=== PATIENT | female | born 1980 | race Caucasian/White ===

== ENCOUNTER 2021-04-05 11:56 | Emergency (ER) | payer OTHER, SELFPAY ==
[2021-04-05 12:05] VITALS: BP 119/73; PULSE 67; RESP 14; TEMP 36.6; O2SAT 100
--- NOTE | 2021-04-05 12:15 | DI.RAD_ITS ---
Exam(s) XR HAND LT COMPLETE EXAM: XR HAND LT COMPLETE CLINICAL HISTORY: pain after fall. TECHNIQUE: 2D digital imaging was performed. COMPARISON: No exams were available for comparison FINDINGS: BONES: There is an acute oblique fracture through the shaft of the 5th metacarpal. There is dorsal a ngulation of the distal fracture. There is also approximately 5 mm of lateral displacement. No bony destructive lesion is seen. JOINTS: No dislocation present. SOFT TISSUE: Normal. IMPRESSION: Displaced fracture of the shaft of the 5th metacarpal. DATA REPOSITORY: RADIATION DOSE DELIVERED:
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
[2021-04-05 13:57] VITALS: BP 112/68; PULSE 83; RESP 18; TEMP 37.2; O2SAT 100
--- NOTE | 2021-04-05 14:20 | DI.VRAD_ITS ---
PROCEDURE INFORMATION: Exam: XR Left Hand Exam date and time: 04/05/2021 12:25 PM Age: 40 years old Clinical indication: Injury or trauma; Blunt trauma (contusions or hematomas); Hand; Left; Patient HX: Pain after fall TECHNIQUE: Imaging protocol: XR Left hand. Views: 3 or more views. COMPARISON: No relevant prior studies available. FINDINGS: Bones/joints: There is an acute oblique fracture through the shaft of the 5th metacarpal bone. The distal fragment is tilted dorsomedially with about 5 mm of lateral displacement. Soft tissues: Normal. IMPRESSION: Displaced fracture of the shaft of the 5th metacarpal bone. Dictated and Authenticated by: Ishaan Cummings MD. Ordering:KURT Couch MD
== END 2021-04-05 14:03 | disposition home or self-care (01) ==
PROVIDERS: Emergency Provider Emergency Medicine
DX: S62.327A Displaced fracture of shaft of fifth metacarpal bone, left hand, initial encounter for closed fracture (principal); V19.9XXA Pedal cyclist (driver) (passenger) injured in unspecified traffic accident, initial encounter
CPT/HCPCS: 29125; 99283; 73130